=== PATIENT | female | born 1965 | race Two or more races ===

== ENCOUNTER 2019-05-01 13:04 | Emergency (ER) | payer BC, OTHER ==
[~2019-05-01] VITALS: Ht 152.4 cm; Wt 62.6 kg
--- NOTE | 2019-05-01 14:15 | NUR ---
patient came in to the ER c/o congestion x 2 weeks, on room air, breathing evenly and unlabored. connected to the monitor and pulse ox. kept comfortable, will continue to monitor accordingly.
[2019-05-01 14:25] VITALS: BP 128/8
--- NOTE | 2019-05-01 14:26 | NUR ---
Patient discharged to home in stable condition. Written and verbal after care instructions given. Patient verbalizes understanding of instruction.
== END 2019-05-01 14:25 | disposition home or self-care (01) ==
LOC: ER 13:05
DX: J32.0 Chronic maxillary sinusitis (principal); Z98.890 Other specified postprocedural states

== ENCOUNTER 2019-10-29 17:17 | Emergency (ER) | payer BC, OTHER ==
[~2019-10-29] VITALS: Ht 152.4 cm; Wt 62.6 kg
--- NOTE | 2019-10-29 17:20 | NUR ---
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 TO ER BED 16, HOOKED TO MONITOR, PROVIDED W LITO ANDRES AT BEDSIDE FOR EVAL
[2019-10-29] MEDS ORDERED: IV NS 0.9% 1,000 ML BAG IV ONE (18:00)
[2019-10-29 18:24] LABS: BASOPHILS % (AUTO) 0.8 % (0.0-2.0); EOSINOPHILS % (AUTO) 2.6 % (0.0-6.0); HEMATOCRIT 36 % (33-45); HEMOGLOBIN 11.5 g/dL (11.5-14.8); LYMPHOCYTES # (AUTO) 1.3 /CMM (0.8-4.8); LYMPHOCYTES % (AUTO) 32.3 % (20.0-44.0); MEAN CORPUSCULAR HGB CONC 32 g/dl (31.0-36.0); MEAN CORPUSCULAR VOLUME 87 fL (82-100); MONOCYTES # (AUTO) 0.3 /CMM (0.1-1.30); MONOCYTES % (AUTO) 6.6 % (2.0-12.0); NEUTROPHILS # (AUTO) 2.4 /CMM (1.8-8.9); NEUTROPHILS % (AUTO) 57.7 % (43.0-81.0); PLATELET COUNT (AUTO) 311 /CMM (150-450); RED BLOOD CELL COUNT(AUTO) 4.12 MIL/uL (4.0-5.2); WHITE BLOOD COUNT (AUTO) 4.1 K/uL (4.3-11.0)
[2019-10-29 18:29] LABS: CALCIUM, SERUM 9.1 mg/dL (8.5-10.1); CREATININE 0.9 mg/dL (0.6-1.3); POTASSIUM 3.4 mmol/L (3.5-5.1)
--- NOTE | 2019-10-29 19:04 | NUR ---
IV removed. Catheter intact and site benign. Pressure and 4x4 applied to site. No bleeding noted.Patient discharged to home in stable condition. Written and verbal after care instructions given. Patient verbalizes understanding of instruction.
[2019-10-29 19:05] VITALS: BP 124/76
== END 2019-10-29 19:06 | disposition home or self-care (01) ==
LOC: ER 17:19
DX: R55 Syncope and collapse (principal); R42 Dizziness and giddiness; I48.91 Unspecified atrial fibrillation; Z98.890 Other specified postprocedural states
CPT/HCPCS: 36415; 80048; 82962; 84484; 85025; 93005; 96360; 99284; J7030

== ENCOUNTER 2019-12-01 14:50 | Outpatient (CLI) | payer BC, OTHER ==
[2019-12-01] MEDS ORDERED: IV NS 0.9% 250 ML IV ONE (15:20)
[2019-12-01] MEDS ORDERED: IOHEXOL-350 100 ML VIAL IV ONE (15:20)
[2019-12-01] MEDS ORDERED: CT SWABBABLE VALVE TRANS SET 1 EA INFUS.SET MC ONE (15:20)
== END 2019-12-01 23:59 | disposition home or self-care (01) ==
LOC: CT 14:50
PROVIDERS: ATTEND Legal Medicine
DX: J84.10 Pulmonary fibrosis, unspecified (principal); M47.819 Spondylosis without myelopathy or radiculopathy, site unspecified
CPT/HCPCS: 71275; J7050; Q9967

== ENCOUNTER 2019-12-05 13:12 | Outpatient (CLI) | payer BC, OTHER | END 2019-12-05 23:59 | disposition home or self-care (01) | LOC: CARD 13:12 | PROVIDERS: ATTEND Legal Medicine | DX: R06.02 Shortness of breath (principal); R07.9 Chest pain, unspecified | CPT/HCPCS: 93307-TC ==

== ENCOUNTER 2019-12-12 08:05 | Outpatient (CLI) | payer BC, OTHER ==
[2019-12-12 09:05] LABS: BASOPHILS % (AUTO) 0.8 % (0.0-2.0); EOSINOPHILS % (AUTO) 3.3 % (0.0-6.0); HEMATOCRIT 37 % (33-45); HEMOGLOBIN 12.2 g/dL (11.5-14.8); LYMPHOCYTES # (AUTO) 1.4 /CMM (0.8-4.8); MEAN CORPUSCULAR HGB CONC 33 g/dl (31.0-36.0); MEAN CORPUSCULAR VOLUME 85 fL (82-100); MONOCYTES # (AUTO) 0.2 /CMM (0.1-1.30); MONOCYTES % (AUTO) 5.8 % (2.0-12.0); NEUTROPHILS # (AUTO) 1.6 /CMM (1.8-8.9); NEUTROPHILS % (AUTO) 47.1 % (43.0-81.0); PLATELET COUNT (AUTO) 338 /CMM (150-450); RED BLOOD CELL COUNT(AUTO) 4.38 MIL/uL (4.0-5.2); WHITE BLOOD COUNT (AUTO) 3.3 K/uL (4.3-11.0)
[2019-12-12 09:34] LABS: ALBUMIN 3.4 g/dL (3.4-5.0); BILIRUBIN,TOTAL 0.3 mg/dL (0.2-1.0); CALCIUM, SERUM 9.5 mg/dL (8.5-10.1); CREATININE 0.8 mg/dL (0.6-1.3); TOTAL PROTEIN, SERUM 7.5 g/dL (6.4-8.2)
[2019-12-12 10:25] LABS: T4 (THYROXINE) 8.2 ug/dL (4.7-13.3); THYROID STIMULATING HORMONE 2.745 uIU/mL (0.358-3.74)
== END 2019-12-12 23:59 | disposition home or self-care (01) ==
LOC: LAB 08:05
PROVIDERS: ATTEND Internal Medicine Interventional Cardiology
DX: I10 Essential (primary) hypertension (principal); E11.9 Type 2 diabetes mellitus without complications; E78.5 Hyperlipidemia, unspecified; E03.9 Hypothyroidism, unspecified; R53.83 Other fatigue
CPT/HCPCS: 36415; 80053-TC; 84436-TC; 84439-TC; 84443-TC; 85025-TC

== ENCOUNTER 2019-12-14 16:51 | Emergency (ER) | payer BC, OTHER ==
[~2019-12-14] VITALS: Ht 152.4 cm; Wt 63.0 kg
--- NOTE | 2019-12-14 16:56 | NUR ---
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 DR ANDRADE AT BEDSIDE FOR EVAL.
[2019-12-14] MEDS ORDERED: IV NS 0.9% 1,000 ML BAG IV ONE (17:00)
[2019-12-14 17:16] LABS: BASOPHILS # (AUTO) 0.1 /CMM (0.0-0.2); EOSINOPHILS % (AUTO) 2.3 % (0.0-6.0); HEMATOCRIT 37 % (33-45); HEMOGLOBIN 12.1 g/dL (11.5-14.8); LYMPHOCYTES # (AUTO) 2.6 /CMM (0.8-4.8); LYMPHOCYTES % (AUTO) 44.7 % (20.0-44.0); MEAN CORPUSCULAR HGB CONC 33 g/dl (31.0-36.0); MEAN CORPUSCULAR VOLUME 86 fL (82-100); MONOCYTES # (AUTO) 0.3 /CMM (0.1-1.30); MONOCYTES % (AUTO) 5.5 % (2.0-12.0); NEUTROPHILS # (AUTO) 2.7 /CMM (1.8-8.9); NEUTROPHILS % (AUTO) 46.5 % (43.0-81.0); PLATELET COUNT (AUTO) 331 /CMM (150-450); RED BLOOD CELL COUNT(AUTO) 4.27 MIL/uL (4.0-5.2); WHITE BLOOD COUNT (AUTO) 5.7 K/uL (4.3-11.0)
[2019-12-14 17:24] LABS: CALCIUM, SERUM 9.3 mg/dL (8.5-10.1); CARBON DIOXIDE 23 mmol/L (21-32); CHLORIDE 103 mmol/L (98-107); CREATININE 0.9 mg/dL (0.6-1.3); GLUCOSE 95 mg/dL (74-106); POTASSIUM 3.2 mmol/L (3.5-5.1); SODIUM SERUM 136 mmol/L (136-145); UREA NITROGEN, BLOOD 11 mg/dL (7-18)
[2019-12-14 17:30] LABS: ALANINE AMINOTRANSFERASE 22 U/L (12-78); ALBUMIN 3.9 g/dL (3.4-5.0); ALKALINE PHOSPHATASE 100 U/L (46-116); ASPARTATE AMINOTRANSFERASE 25 U/L (15-37); BILIRUBIN,DIRECT 0.1 mg/dL (0.0-0.2); BILIRUBIN,TOTAL 0.2 mg/dL (0.2-1.0); TOTAL PROTEIN, SERUM 8.1 g/dL (6.4-8.2)
[2019-12-14] MEDS ORDERED: POTASSIUM CHLORIDE 20 MEQ TAB.PRT.SR PO ONE ×2 (18:00→18:02)
--- NOTE | 2019-12-14 18:04 | NUR ---
patient feels palpitations, received md order of ekg stat
[2019-12-14 18:20] VITALS: BP 116/74
== END 2019-12-14 18:20 | disposition home or self-care (01) ==
LOC: ER 16:53
DX: R00.2 Palpitations (principal); E87.6 Hypokalemia; Z98.890 Other specified postprocedural states; Z60.2 Problems related to living alone
CPT/HCPCS: 36415; 71045; 80048; 80076; 84484; 85025; 93005 ×4; 96360; 99285; J7030

== ENCOUNTER 2020-04-03 11:45 | Emergency (ER) | payer BC, OTHER ==
[~2020-04-03] VITALS: Ht 152.4 cm; Wt 60.8 kg
[2020-04-03 12:00] VITALS: BP 129/85
== END 2020-04-03 14:09 | disposition home or self-care (01) ==
LOC: ER 11:47
DX: J02.9 Acute pharyngitis, unspecified (principal); R09.81 Nasal congestion; U07.1 COVID-19
CPT/HCPCS: 86403-TC; 87070-TC

== ENCOUNTER 2020-04-10 08:56 | Outpatient (CLI) | payer BC, OTHER ==
[2020-04-10 10:30] LABS: BILIRUBIN,URINE NEGATIVE (NEGATIVE); BLOOD, URINE NEGATIVE Ery/uL (NEGATIVE); COLOR,URINE YELLOW (YELLOW); LEUKOCYTE ESTERASE ,URINE NEGATIVE (NEGATIVE); NITRITE, URINE NEGATIVE (NEGATIVE); PROTEIN,URINE NEGATIVE (NEGATIVE); UGLUCOSE NEGATIVE (NEGATIVE); UROBILINOGEN,URINE 0.2 EU/dL (0.2)
[2020-04-10 10:37] LABS: BASOPHILS % (AUTO) 0.1 % (0.0-2.0); EOSINOPHILS % (AUTO) 0.2 % (0.0-6.0); HEMATOCRIT 41 % (33-45); HEMOGLOBIN 13.2 g/dL (11.5-14.8); LYMPHOCYTES # (AUTO) 1.2 /CMM (0.8-4.8); LYMPHOCYTES % (AUTO) 21.8 % (20.0-44.0); MEAN CORPUSCULAR HGB CONC 32 g/dl (31.0-36.0); MEAN CORPUSCULAR VOLUME 86 fL (82-100); MONOCYTES # (AUTO) 0.3 /CMM (0.1-1.30); NEUTROPHILS # (AUTO) 3.9 /CMM (1.8-8.9); NEUTROPHILS % (AUTO) 72.9 % (43.0-81.0); PLATELET COUNT (AUTO) 349 /CMM (150-450); RED BLOOD CELL COUNT(AUTO) 4.79 MIL/uL (4.0-5.2); WHITE BLOOD COUNT (AUTO) 5.3 K/uL (4.3-11.0)
[2020-04-10 10:41] LABS: ALBUMIN 3.9 g/dL (3.4-5.0); BILIRUBIN,TOTAL 0.3 mg/dL (0.2-1.0); CALCIUM, SERUM 10.1 mg/dL (8.5-10.1); CREATININE 0.8 mg/dL (0.6-1.3); POTASSIUM 3.6 mmol/L (3.5-5.1); TOTAL PROTEIN, SERUM 8.5 g/dL (6.4-8.2)
[2020-04-10 10:54] LABS: THYROID STIMULATING HORMONE 0.582 uIU/mL (0.358-3.74)
[2020-04-10 11:06] LABS: C-REACTIVE PROTEIN 0.3 mg/dL (0.0-0.9)
[2020-04-11 07:07] LABS: FOLLICLE STIMULATION HORMONE 50.4 mIU/mL (.); LUTEINIZING HORMONE 23.2 mIU/mL (.)
== END 2020-04-10 23:59 | disposition home or self-care (01) ==
LOC: LAB 08:56
PROVIDERS: ATTEND Legal Medicine
DX: N39.0 Urinary tract infection, site not specified (principal); D64.9 Anemia, unspecified; R53.1 Weakness
CPT/HCPCS: 36415; 80053-TC; 82670; 83001; 83002; 84439-TC; 84443-TC; 85025-TC; 85652-TC; 86140-TC; 87086-TC

== ENCOUNTER 2020-04-11 11:57 | Emergency (ER) | payer BC, OTHER ==
[~2020-04-11] VITALS: Ht 152.4 cm; Wt 59.9 kg
--- NOTE | 2020-04-11 12:30 | NUR ---
BIB SELF C/O L SIDED PRESSURE LIKE CHEST PAIN, BLE AND L ARM NUMBNESS SINCE 0800 TODAY. VS CHECKED. HOOKED ON MONITOR. IV ACCESS STARTED. BLOO DRAW DONE SENT TO LAB. SEEN BY
[2020-04-11 14:07] LABS: BASOPHILS % (AUTO) 0.9 % (0.0-2.0); HEMATOCRIT 36 % (33-45); HEMOGLOBIN 11.6 g/dL (11.5-14.8); LYMPHOCYTES # (AUTO) 1.4 /CMM (0.8-4.8); LYMPHOCYTES % (AUTO) 33.2 % (20.0-44.0); MEAN CORPUSCULAR HGB CONC 32 g/dl (31.0-36.0); MEAN CORPUSCULAR VOLUME 86 fL (82-100); MONOCYTES # (AUTO) 0.4 /CMM (0.1-1.30); MONOCYTES % (AUTO) 8.7 % (2.0-12.0); NEUTROPHILS # (AUTO) 2.3 /CMM (1.8-8.9); NEUTROPHILS % (AUTO) 56.2 % (43.0-81.0); PLATELET COUNT (AUTO) 292 /CMM (150-450); RED BLOOD CELL COUNT(AUTO) 4.21 MIL/uL (4.0-5.2); WHITE BLOOD COUNT (AUTO) 4.2 K/uL (4.3-11.0)
[2020-04-11 14:11] LABS: CALCIUM, SERUM 9.4 mg/dL (8.5-10.1); CARBON DIOXIDE 27 mmol/L (21-32); CHLORIDE 106 mmol/L (98-107); CREATININE 0.8 mg/dL (0.6-1.3); GLUCOSE 103 mg/dL (74-106); POTASSIUM 3.9 mmol/L (3.5-5.1); SODIUM SERUM 141 mmol/L (136-145); UREA NITROGEN, BLOOD 23 mg/dL (7-18)
--- NOTE | 2020-04-11 18:49 | NUR ---
Patient discharged to home in stable condition. Written and verbal after care instructions given. Patient verbalizes understanding of instruction.IV removed. Catheter intact and site benign. Pressure and 4x4 applied to site. No bleeding noted.
[2020-04-11 18:50] VITALS: BP 130/84
== END 2020-04-11 18:50 | disposition home or self-care (01) ==
LOC: ER 12:03
DX: R07.89 Other chest pain (principal); R20.2 Paresthesia of skin; Z98.890 Other specified postprocedural states; Z60.2 Problems related to living alone
CPT/HCPCS: 36415; 71045; 78582; 80048; 83735; 84484; 85025; 85378; 93005 ×3; 99285; A9540; A9567

== ENCOUNTER 2020-06-29 10:07 | Outpatient (CLI) | payer BC, OTHER | END 2020-06-29 23:59 | disposition home or self-care (01) | LOC: US 10:07 | PROVIDERS: ATTEND Legal Medicine | DX: R10.9 Unspecified abdominal pain (principal); R10.2 Pelvic and perineal pain | CPT/HCPCS: 76856-TC ==

== ENCOUNTER 2020-11-05 08:23 | Outpatient (CLI) | payer BC, OTHER ==
[2020-11-05 09:05] LABS: BASOPHILS % (AUTO) 0.7 % (0.0-2.0); EOSINOPHILS % (AUTO) 2.4 % (0.0-6.0); HEMATOCRIT 38 % (33-45); HEMOGLOBIN 12.3 g/dL (11.5-14.8); MEAN CORPUSCULAR HGB CONC 32 g/dl (31.0-36.0); MEAN CORPUSCULAR VOLUME 86 fL (82-100); MONOCYTES # (AUTO) 0.2 K/uL (0.1-1.30); MONOCYTES % (AUTO) 5.3 % (2.0-12.0); NEUTROPHILS # (AUTO) 1.9 K/uL (1.8-8.9); NEUTROPHILS % (AUTO) 44.6 % (43.0-81.0); PLATELET COUNT (AUTO) 332 K/uL (150-450); RED BLOOD CELL COUNT(AUTO) 4.43 MIL/uL (4.0-5.2); WHITE BLOOD COUNT (AUTO) 4.2 K/uL (4.3-11.0)
[2020-11-05 09:16] LABS: BILIRUBIN,URINE NEGATIVE (NEGATIVE); COLOR,URINE YELLOW (YELLOW); LEUKOCYTE ESTERASE ,URINE NEGATIVE (NEGATIVE); NITRITE, URINE NEGATIVE (NEGATIVE); PH,URINE 7.5 (5.0-8.0); PROTEIN,URINE NEGATIVE (NEGATIVE); UGLUCOSE NEGATIVE (NEGATIVE); UROBILINOGEN,URINE 0.2 EU/dL (0.2)
[2020-11-05 09:24] LABS: IRON, SERUM 53 ug/dl (50-175); TOTAL IRON BINDING CAPACITY 289 ug/dl (250-450)
[2020-11-05 09:43] LABS: CHOLESTEROL 240 mg/dL (<200); FERRITIN 37 ng/mL (8-388); HDL CHOLESTEROL 56 mg/dL (40-60); LDL 179 mg/dL (0-99); THYROID STIMULATING HORMONE 1.797 uIU/mL (0.358-3.74); TRIGLYCERIDES 101 mg/dL (30-150)
[2020-11-05 09:50] LABS: ALANINE AMINOTRANSFERASE 32 U/L (12-78); ALBUMIN 3.5 g/dL (3.4-5.0); ALKALINE PHOSPHATASE 105 U/L (46-116); ASPARTATE AMINOTRANSFERASE 27 U/L (15-37); BILIRUBIN,TOTAL 0.2 mg/dL (0.2-1.0); CALCIUM, SERUM 8.9 mg/dL (8.5-10.1); CARBON DIOXIDE 28 mmol/L (21-32); CHLORIDE 109 mmol/L (98-107); CREATININE 0.8 mg/dL (0.6-1.3); GLUCOSE 98 mg/dL (74-106); POTASSIUM 4.1 mmol/L (3.5-5.1); SODIUM SERUM 141 mmol/L (136-145); TOTAL PROTEIN, SERUM 7.5 g/dL (6.4-8.2); UREA NITROGEN, BLOOD 13 mg/dL (7-18)
[2020-11-05 10:02] LABS: C-REACTIVE PROTEIN < 0.2 mg/dL (0.0-0.9)
[2020-11-06 05:08] LABS: FOLLICLE STIMULATION HORMONE 55.9 mIU/mL (.); LUTEINIZING HORMONE 33.4 mIU/mL (.); PROLACTIN 12.1 ng/mL (4.8-23.3)
== END 2020-11-05 23:59 | disposition home or self-care (01) ==
LOC: LAB 08:23
PROVIDERS: ATTEND Legal Medicine
DX: N39.0 Urinary tract infection, site not specified (principal); E03.9 Hypothyroidism, unspecified; D64.9 Anemia, unspecified; E55.9 Vitamin D deficiency, unspecified; R53.1 Weakness; R30.0 Dysuria; Z00.00 Encounter for general adult medical examination without abnormal findings
CPT/HCPCS: 36415; 80053-TC; 80061-TC; 82306; 82607-TC; 82626; 82670; 82728-TC; 83001; 83002; 83540-TC; 84146; 84403; 84439-TC; 84443-TC; 85025-TC; 85652-TC; 86140-TC; 87086-TC

== ENCOUNTER 2021-02-01 11:05 | Outpatient (CLI) | payer BC, OTHER | END 2021-02-01 23:59 | disposition home or self-care (01) | LOC: CT 11:05 | PROVIDERS: ATTEND Legal Medicine | DX: J32.2 Chronic ethmoidal sinusitis (principal); J03.90 Acute tonsillitis, unspecified; R59.1 Generalized enlarged lymph nodes | CPT/HCPCS: 70490-TC ==

== ENCOUNTER → 2021-03-20 | Outpatient (CLI) | payer BC, OTHER ==
[2021-03-20 10:57] LABS: BASOPHILS % (AUTO) 0.9 % (0.0-2.0); EOSINOPHILS % (AUTO) 4.6 % (0.0-6.0); HEMATOCRIT 36 % (33-45); HEMOGLOBIN 11.8 g/dL (11.5-14.8); LYMPHOCYTES # (AUTO) 1.3 K/uL (0.8-4.8); LYMPHOCYTES % (AUTO) 42.1 % (20.0-44.0); MEAN CORPUSCULAR HGB CONC 32 g/dl (31.0-36.0); MEAN CORPUSCULAR VOLUME 87 fL (82-100); MONOCYTES # (AUTO) 0.2 K/uL (0.1-1.30); NEUTROPHILS # (AUTO) 1.3 K/uL (1.8-8.9); NEUTROPHILS % (AUTO) 44.4 % (43.0-81.0); PLATELET COUNT (AUTO) 287 K/uL (150-450)
[2021-03-20 11:47] LABS: C-REACTIVE PROTEIN 0.3 mg/dL (0.0-0.9); URIC ACID 4.5 mg/dL (2.6-7.2)
== END | disposition home or self-care (01) ==
LOC: LAB 09:17
PROVIDERS: ATTEND Legal Medicine
DX: R07.89 Other chest pain (principal)
CPT/HCPCS: 36415; 82550-TC; 84550-TC; 85025-TC; 85652-TC; 86140-TC; 86200; 86431-TC

== ENCOUNTER 2021-05-28 09:55 | Outpatient (CLI) | payer BC, OTHER | END 2021-05-28 23:59 | disposition home or self-care (01) | LOC: US 09:55 | PROVIDERS: ATTEND Legal Medicine | DX: R10.2 Pelvic and perineal pain (principal) | CPT/HCPCS: 76856-TC ==

== ENCOUNTER 2021-06-05 12:57 | Outpatient (CLI) | payer BC, OTHER | END 2021-06-05 23:59 | disposition home or self-care (01) | LOC: MRI 12:57 | PROVIDERS: ATTEND Legal Medicine | DX: M47.817 Spondylosis without myelopathy or radiculopathy, lumbosacral region (principal); M48.061 Spinal stenosis, lumbar region without neurogenic claudication | CPT/HCPCS: 72148-TC ==

== ENCOUNTER 2021-11-06 11:16 | Outpatient (CLI) | payer BC, OTHER ==
[2021-11-06 12:36] LABS: BASOPHILS % (AUTO) 0.8 % (0.0-2.0); EOSINOPHILS % (AUTO) 2.5 % (0.0-6.0); HEMATOCRIT 40 % (33-45); HEMOGLOBIN 12.8 g/dL (11.5-14.8); LYMPHOCYTES # (AUTO) 1.3 K/uL (0.8-4.8); MEAN CORPUSCULAR HGB CONC 32 g/dl (31.0-36.0); MEAN CORPUSCULAR VOLUME 84 fL (82-100); MONOCYTES # (AUTO) 0.2 K/uL (0.1-1.30); MONOCYTES % (AUTO) 6.4 % (2.0-12.0); NEUTROPHILS # (AUTO) 1.4 K/uL (1.8-8.9); NEUTROPHILS % (AUTO) 46.3 % (43.0-81.0); PLATELET COUNT (AUTO) 281 K/uL (150-450); RED BLOOD CELL COUNT(AUTO) 4.69 MIL/uL (4.0-5.2); WHITE BLOOD COUNT (AUTO) 3.1 K/uL (4.3-11.0)
[2021-11-06 12:57] LABS: BILIRUBIN,URINE NEGATIVE (NEGATIVE); COLOR,URINE YELLOW (YELLOW); LEUKOCYTE ESTERASE ,URINE NEGATIVE (NEGATIVE); NITRITE, URINE NEGATIVE (NEGATIVE); PROTEIN,URINE NEGATIVE (NEGATIVE); UGLUCOSE NEGATIVE (NEGATIVE); UROBILINOGEN,URINE 0.2 EU/dL (0.2)
[2021-11-06 13:21] LABS: CHOLESTEROL 255 mg/dL (<200); FERRITIN 29 ng/mL (8-388); HDL CHOLESTEROL 56 mg/dL (40-60); LDL 173 mg/dL (0-99); THYROID STIMULATING HORMONE 1.906 uIU/mL (0.358-3.74); TRIGLYCERIDES 112 mg/dL (30-150)
[2021-11-06 13:25] LABS: C-REACTIVE PROTEIN < 0.2 mg/dL (0.0-0.9)
[2021-11-06 13:46] LABS: ALANINE AMINOTRANSFERASE 35 U/L (12-78); ALBUMIN 3.6 g/dL (3.4-5.0); ALKALINE PHOSPHATASE 103 U/L (46-116); AMYLASE 97 U/L (25-115); ASPARTATE AMINOTRANSFERASE 30 U/L (15-37); BILIRUBIN,TOTAL 0.2 mg/dL (0.2-1.0); CALCIUM, SERUM 9.1 mg/dL (8.5-10.1); CARBON DIOXIDE 27 mmol/L (21-32); CHLORIDE 106 mmol/L (98-107); CREATININE 0.7 mg/dL (0.6-1.3); GLUCOSE 94 mg/dL (74-106); LIPASE 135 U/L (73-393); POTASSIUM 4.1 mmol/L (3.5-5.1); SODIUM SERUM 140 mmol/L (136-145); TOTAL PROTEIN, SERUM 7.6 g/dL (6.4-8.2); UREA NITROGEN, BLOOD 11 mg/dL (7-18)
[2021-11-06 15:02] LABS: IRON, SERUM 59 ug/dl (50-175); TOTAL IRON BINDING CAPACITY 245 ug/dl (250-450)
== END 2021-11-06 23:59 | disposition home or self-care (01) ==
LOC: LAB 11:16
PROVIDERS: ATTEND Legal Medicine
DX: Z00.00 Encounter for general adult medical examination without abnormal findings (principal); I70.0 Atherosclerosis of aorta; N32.89 Other specified disorders of bladder; D73.89 Other diseases of spleen; E11.9 Type 2 diabetes mellitus without complications; E78.00 Pure hypercholesterolemia, unspecified; R53.1 Weakness; E03.9 Hypothyroidism, unspecified; D64.9 Anemia, unspecified; E55.9 Vitamin D deficiency, unspecified; R10.9 Unspecified abdominal pain
CPT/HCPCS: 36415; 80053-TC; 80061-TC; 82150-TC; 82306; 82607-TC; 82728-TC; 83540-TC; 83690-TC; 84439-TC; 84443-TC; 85025-TC; 85652-TC; 86140-TC; 87086-TC

== ENCOUNTER 2022-06-25 10:24 | Outpatient (CLI) | payer BC, OTHER | END 2022-06-25 23:59 | disposition home or self-care (01) | LOC: CT 10:24 | PROVIDERS: ATTEND Legal Medicine | DX: M47.812 Spondylosis without myelopathy or radiculopathy, cervical region (principal); R51.9 Headache, unspecified | CPT/HCPCS: 70450-TC; 72125-TC ==

== ENCOUNTER 2022-11-20 19:40 | Emergency (ER) | payer BC, OTHER ==
[~2022-11-20] VITALS: Ht 152.4 cm; Wt 62.6 kg
[2022-11-20 19:52] VITALS: TEMP 98.4
[2022-11-20 20:37] LABS: BILIRUBIN,URINE NEGATIVE (NEGATIVE); COLOR,URINE YELLOW (YELLOW); LEUKOCYTE ESTERASE ,URINE 3+ (NEGATIVE); NITRITE, URINE NEGATIVE (NEGATIVE); PROTEIN,URINE NEGATIVE (NEGATIVE); UGLUCOSE NEGATIVE (NEGATIVE); UROBILINOGEN,URINE 0.2 EU/dL (0.2)
[2022-11-20 20:46] LABS: BACTERIA,URINE 2+ /HPF (None Seen); SQUAMOUS EPITHELIAL CELL,UR 0-2 /HPF (None Seen); WBC,URINE 51-80 /HPF (0-3)
[2022-11-20] MEDS ORDERED: CEFD300C3 PO (21:08)
[2022-11-20 21:15] VITALS: BP 118/76; O2SAT 98
== END 2022-11-20 21:15 | disposition home or self-care (01) ==
LOC: ER 19:49
DX: N12 Tubulo-interstitial nephritis, not specified as acute or chronic (principal); N39.0 Urinary tract infection, site not specified; Z98.890 Other specified postprocedural states; Z60.2 Problems related to living alone; Z79.899 Other long term (current) drug therapy
CPT/HCPCS: 81001; 87086-TC

== ENCOUNTER 2023-07-14 15:30 | Emergency (ER) | payer BC, OTHER ==
[~2023-07-14] VITALS: Ht 152.4 cm; Wt 62.1 kg
[~2023-07-14 15:30] MED LIST: CEFD300C3 PO
[2023-07-14 15:38] VITALS: BP 130/75; TEMP 98.4; O2SAT 99
== END 2023-07-14 16:21 | disposition home or self-care (01) ==
LOC: ER 15:34
DX: S09.90XA Unspecified injury of head, initial encounter (principal); Z60.2 Problems related to living alone; W20.8XXA Other cause of strike by thrown, projected or falling object, initial encounter; Y93.89 Activity, other specified; Y92.89 Other specified places as the place of occurrence of the external cause; Y99.0 Civilian activity done for income or pay

== ENCOUNTER 2024-03-16 17:42 | Emergency (ER) | payer BC ==
[~2024-03-16] VITALS: Ht 152.4 cm; Wt 59.9 kg
[2024-03-16 17:52] VITALS: TEMP 97.8
[2024-03-16 18:25] LABS: BASOPHILS # (AUTO) 0.1 K/uL (0.0-0.2); BASOPHILS % (AUTO) 1.1 % (0.0-2.0); EOSINOPHILS # (AUTO) 0.1 K/uL (0.0-0.7); EOSINOPHILS % (AUTO) 1.5 % (0.0-6.0); HEMATOCRIT 36 % (33-45); HEMOGLOBIN 11.7 g/dL (11.5-14.8); MEAN CORPUSCULAR HEMOGLOBIN 28 PG (26.0-33.0); MEAN CORPUSCULAR HGB CONC 33 g/dl (31.0-36.0); MEAN CORPUSCULAR VOLUME 85 fL (82-100); MONOCYTES # (AUTO) 0.3 K/uL (0.1-1.30); MONOCYTES % (AUTO) 5.4 % (2.0-12.0); NEUTROPHILS # (AUTO) 2.7 K/uL (1.8-8.9); PLATELET COUNT (AUTO) 330 K/uL (150-450); RED CELL DISTRIBUTION WIDTH 14.2 % (11.5-15.0); WHITE BLOOD COUNT (AUTO) 5.1 K/uL (4.3-11.0)
[2024-03-16 18:33] LABS: CALCIUM, SERUM 9.7 mg/dL (8.5-10.1); CARBON DIOXIDE 26 mmol/L (21-32); CHLORIDE 104 mmol/L (98-107); CREATININE 0.8 mg/dL (0.6-1.3); GLUCOSE 109 mg/dL (74-106); POTASSIUM 3.3 mmol/L (3.5-5.1); SODIUM SERUM 140 mmol/L (136-145); UREA NITROGEN, BLOOD 10 mg/dL (7-18)
[2024-03-16 23:20] VITALS: BP 119/73; O2SAT 98
== END 2024-03-16 22:00 | disposition home or self-care (01) ==
LOC: ER 17:46
DX: R07.89 Other chest pain (principal); I10 Essential (primary) hypertension; Z79.899 Other long term (current) drug therapy; Z60.2 Problems related to living alone
CPT/HCPCS: 36415; 71045-TC; 80048-TC; 84484-TC; 85025-TC; 85378-TC

== ENCOUNTER 2024-04-29 09:36 | Outpatient (CLI) | payer BC, OTHER ==
[2024-04-29 10:44] LABS: BASOPHILS % (AUTO) 1.2 % (0.0-2.0); EOSINOPHILS # (AUTO) 0.2 K/uL (0.0-0.7); EOSINOPHILS % (AUTO) 3.9 % (0.0-6.0); HEMATOCRIT 36 % (33-45); HEMOGLOBIN 11.9 g/dL (11.5-14.8); LYMPHOCYTES # (AUTO) 1.6 K/uL (0.8-4.8); LYMPHOCYTES % (AUTO) 42.5 % (20.0-44.0); MEAN CORPUSCULAR HEMOGLOBIN 28 PG (26.0-33.0); MEAN CORPUSCULAR HGB CONC 33 g/dl (31.0-36.0); MEAN CORPUSCULAR VOLUME 85 fL (82-100); MONOCYTES # (AUTO) 0.2 K/uL (0.1-1.30); MONOCYTES % (AUTO) 6.1 % (2.0-12.0); NEUTROPHILS # (AUTO) 1.8 K/uL (1.8-8.9); NEUTROPHILS % (AUTO) 46.3 % (43.0-81.0); PLATELET COUNT (AUTO) 356 K/uL (150-450); RED BLOOD CELL COUNT(AUTO) 4.26 MIL/uL (4.0-5.2); RED CELL DISTRIBUTION WIDTH 14.1 % (11.5-15.0); WHITE BLOOD COUNT (AUTO) 3.9 K/uL (4.3-11.0)
[2024-04-29 10:58] LABS: APPEARANCE,URINE CLEAR (CLEAR); BILIRUBIN,URINE NEGATIVE (NEGATIVE); BLOOD, URINE NEGATIVE Ery/uL (NEGATIVE); COLOR,URINE YELLOW (YELLOW); KETONES,URINE NEGATIVE (NEGATIVE); LEUKOCYTE ESTERASE ,URINE NEGATIVE (NEGATIVE); NITRITE, URINE NEGATIVE (NEGATIVE); PROTEIN,URINE NEGATIVE (NEGATIVE); UGLUCOSE NEGATIVE (NEGATIVE); UROBILINOGEN,URINE 0.2 EU/dL (0.2)
[2024-04-29 11:03] LABS: THYROID STIMULATING HORMONE 1.52 uIU/mL (0.358-3.74)
[2024-04-29 11:17] LABS: ALBUMIN 3.5 g/dL (3.4-5.0); BILIRUBIN,TOTAL 0.2 mg/dL (0.2-1.0); CALCIUM, SERUM 9.3 mg/dL (8.5-10.1); CREATININE 0.7 mg/dL (0.6-1.3); TOTAL PROTEIN, SERUM 7.4 g/dL (6.4-8.2)
[2024-04-30 11:06] LABS: FOLIC ACID > 20.0 ng/mL (>3.0)
[2024-04-30 12:07] LABS: CORTISOL AM 9.2 ug/dL (6.2-19.4)
== END 2024-04-29 23:59 | disposition home or self-care (01) ==
LOC: LAB 09:36
PROVIDERS: ATTEND Legal Medicine
DX: Z00.00 Encounter for general adult medical examination without abnormal findings (principal); E55.9 Vitamin D deficiency, unspecified; E78.00 Pure hypercholesterolemia, unspecified; R53.1 Weakness; E11.22 Type 2 diabetes mellitus with diabetic chronic kidney disease; N18.9 Chronic kidney disease, unspecified; D63.1 Anemia in chronic kidney disease
CPT/HCPCS: 36415; 80053-TC; 82533; 82607-TC; 82728-TC; 83540-TC; 84443-TC; 85025-TC; 87086-TC

== ENCOUNTER 2024-09-02 18:17 | Emergency (ER) | payer BC, OTHER ==
[~2024-09-02] VITALS: Ht 152.4 cm; Wt 58.1 kg
[2024-09-02 18:36] LABS: BASOPHILS % (AUTO) 0.7 % (0.0-2.0); EOSINOPHILS # (AUTO) 0.1 K/uL (0.0-0.7); EOSINOPHILS % (AUTO) 1.7 % (0.0-6.0); HEMATOCRIT 38 % (33-45); HEMOGLOBIN 12.5 g/dL (11.5-14.8); LYMPHOCYTES # (AUTO) 2.9 K/uL (0.8-4.8); LYMPHOCYTES % (AUTO) 50.6 % (20.0-44.0); MEAN CORPUSCULAR HEMOGLOBIN 28 PG (26.0-33.0); MEAN CORPUSCULAR HGB CONC 33 g/dl (31.0-36.0); MEAN CORPUSCULAR VOLUME 84 fL (82-100); MONOCYTES # (AUTO) 0.2 K/uL (0.1-1.30); MONOCYTES % (AUTO) 3.8 % (2.0-12.0); NEUTROPHILS # (AUTO) 2.5 K/uL (1.8-8.9); NEUTROPHILS % (AUTO) 43.2 % (43.0-81.0); PLATELET COUNT (AUTO) 310 K/uL (150-450); RED BLOOD CELL COUNT(AUTO) 4.46 MIL/uL (4.0-5.2); RED CELL DISTRIBUTION WIDTH 13.9 % (11.5-15.0); WHITE BLOOD COUNT (AUTO) 5.7 K/uL (4.3-11.0)
[2024-09-02 18:46] LABS: CALCIUM, SERUM 9.6 mg/dL (8.5-10.1); CHLORIDE 104 mmol/L (98-107); GLUCOSE 117 mg/dL (74-106); POTASSIUM 3.2 mmol/L (3.5-5.1); SODIUM SERUM 135 mmol/L (136-145); UREA NITROGEN, BLOOD 18 mg/dL (7-18)
[2024-09-02 18:58] LABS: NT-PRO BNP 41 pg/mL (0-125)
[2024-09-02 19:10] LABS: CARBON DIOXIDE 24 mmol/L (21-32)
[2024-09-02 19:11] LABS: THYROID STIMULATING HORMONE 1.54 uIU/mL (0.358-3.74)
[2024-09-02] MEDS ORDERED: POTASSIUM CHLORIDE 20 MEQ TAB.PRT.SR PO ONE (19:40)
[2024-09-02] MEDS: POTASSIUM CHLORIDE 20 MEQ TAB.PRT.SR PO ONE (19:43)
[2024-09-02 20:54] VITALS: BP 120/72; TEMP 97.7; O2SAT 97
== END 2024-09-02 20:55 | disposition home or self-care (01) ==
LOC: ER 18:28
DX: R00.2 Palpitations (principal); E87.6 Hypokalemia; I10 Essential (primary) hypertension; R06.00 Dyspnea, unspecified; R07.9 Chest pain, unspecified; R42 Dizziness and giddiness; Z60.2 Problems related to living alone
CPT/HCPCS: 36415; 71045-TC; 80048-TC; 83735-TC; 83880; 84439-TC; 84443-TC; 84484-TC; 85025-TC

== ENCOUNTER 2024-09-15 11:48 | Inpatient (IN) | payer BC, OTHER ==
[~2024-09-15] VITALS: Ht 160 cm; Wt 59.0 kg
[2024-09-15 12:48] LABS: BASOPHILS % (AUTO) 0.7 % (0.0-2.0); EOSINOPHILS # (AUTO) 0.1 K/uL (0.0-0.7); EOSINOPHILS % (AUTO) 1.6 % (0.0-6.0); HEMATOCRIT 37 % (33-45); HEMOGLOBIN 12.3 g/dL (11.5-14.8); LYMPHOCYTES # (AUTO) 1.5 K/uL (0.8-4.8); LYMPHOCYTES % (AUTO) 39.4 % (20.0-44.0); MEAN CORPUSCULAR HEMOGLOBIN 28 PG (26.0-33.0); MEAN CORPUSCULAR HGB CONC 33 g/dl (31.0-36.0); MEAN CORPUSCULAR VOLUME 85 fL (82-100); MONOCYTES # (AUTO) 0.2 K/uL (0.1-1.30); NEUTROPHILS % (AUTO) 52.3 % (43.0-81.0); PLATELET COUNT (AUTO) 317 K/uL (150-450); RED BLOOD CELL COUNT(AUTO) 4.38 MIL/uL (4.0-5.2); RED CELL DISTRIBUTION WIDTH 13.8 % (11.5-15.0); WHITE BLOOD COUNT (AUTO) 3.8 K/uL (4.3-11.0)
[2024-09-15 12:58] LABS: MAGNESIUM 2.2 mg/dL (1.8-2.4)
[2024-09-15 12:59] LABS: CALCIUM, SERUM 9.7 mg/dL (8.5-10.1); CARBON DIOXIDE 26 mmol/L (21-32); CHLORIDE 107 mmol/L (98-107); GLUCOSE 132 mg/dL (74-106); POTASSIUM 3.9 mmol/L (3.5-5.1); SODIUM SERUM 140 mmol/L (136-145); UREA NITROGEN, BLOOD 22 mg/dL (7-18)
[2024-09-15 13:11] LABS: NT-PRO BNP 29 pg/mL (0-125)
[2024-09-15] MEDS ORDERED: POTASSIUM SUPPLEMENT PO (13:28)
[2024-09-15] MEDS ORDERED: ASPI-1169 PO (13:28)
[2024-09-15] MEDS ORDERED: FERR-68 PO (13:28)
[2024-09-15 13:36] LABS: THYROID STIMULATING HORMONE 2.59 uIU/mL (0.358-3.74)
[2024-09-15] MEDS ORDERED: HYDROCODONE/APAP 5/325MG TABLET PO PRN (14:30)
[2024-09-15] MEDS ORDERED: MAGNESIUM HYDROXIDE 30 ML UDC PO PRN (14:30)
[2024-09-15] MEDS ORDERED: ZOLPIDEM TARTRATE 5 MG TABLET PO PRN (14:30)
[2024-09-15] MEDS ORDERED: LORAZEPAM 1 MG TABLET PO PRN (14:30)
[2024-09-15] MEDS ORDERED: MAG HYDROX/AL HYDROX/SIMETH 30 ML UDC PO PRN (14:30)
[2024-09-15] MEDS ORDERED: Z GUARD REMEDY 4 OZ OINT TP PRN (14:30)
[2024-09-15] MEDS ORDERED: ACETAMINOPHEN 325 MG TABLET PO PRN (14:30)
[2024-09-15] MEDS: ASPIRIN 81 MG TAB.CHEW PO SCH (14:59)
[2024-09-15] MEDS: ENOXAPARIN SODIUM 40 MG/0.4 ML DISP.SYRIN SQ SCH (15:00)
[2024-09-15 16:00] VITALS: BP 124/66; TEMP 98.2; O2SAT 100
[2024-09-15] MEDS: IV NS 0.9% 1,000 ML IV PRN (18:28)
[2024-09-15 20:00] VITALS: BP 113/71; TEMP 97.7; O2SAT 100
[2024-09-16] VITALS: BP 107/66; TEMP 98.1; O2SAT 100
[2024-09-16 04:00] VITALS: BP 97/63; TEMP 97.3; O2SAT 100
[2024-09-16 06:34] LABS: EOSINOPHILS # (AUTO) 0.1 K/uL (0.0-0.7); EOSINOPHILS % (AUTO) 2.2 % (0.0-6.0); HEMATOCRIT 34 % (33-45); HEMOGLOBIN 11.4 g/dL (11.5-14.8); LYMPHOCYTES # (AUTO) 1.9 K/uL (0.8-4.8); LYMPHOCYTES % (AUTO) 45.3 % (20.0-44.0); MEAN CORPUSCULAR HEMOGLOBIN 29 PG (26.0-33.0); MEAN CORPUSCULAR HGB CONC 34 g/dl (31.0-36.0); MEAN CORPUSCULAR VOLUME 84 fL (82-100); MONOCYTES # (AUTO) 0.3 K/uL (0.1-1.30); MONOCYTES % (AUTO) 7.1 % (2.0-12.0); NEUTROPHILS # (AUTO) 1.8 K/uL (1.8-8.9); NEUTROPHILS % (AUTO) 44.4 % (43.0-81.0); PLATELET COUNT (AUTO) 301 K/uL (150-450); RED BLOOD CELL COUNT(AUTO) 3.99 MIL/uL (4.0-5.2); RED CELL DISTRIBUTION WIDTH 13.9 % (11.5-15.0); WHITE BLOOD COUNT (AUTO) 4.1 K/uL (4.3-11.0)
[2024-09-16 07:11] LABS: CALCIUM, SERUM 9.2 mg/dL (8.5-10.1); CREATININE 0.8 mg/dL (0.6-1.3); MAGNESIUM 2.3 mg/dL (1.8-2.4); PHOSPHORUS 3.3 mg/dL (2.5-4.9)
[2024-09-16] MEDS: PANTOPRAZOLE 40 MG TABLET.DR PO SCH (07:30)
[2024-09-16 08:00] VITALS: BP 109/72; TEMP 98.1; O2SAT 100
[2024-09-16] MEDS: ATORVASTATIN 40 MG TABLET PO SCH (08:19)
[2024-09-16] MEDS: METOPROLOL TARTRATE 50 MG TABLET PO SCH (08:19)
[2024-09-16] MEDS ORDERED: diphenhydrAMINE HCL 50 MG/ML VIAL IV ONE (09:00)
[2024-09-16] MEDS ORDERED: FAMOTIDINE/PF INJ 20 MG/2 ML VIAL IV ONE (09:00)
[2024-09-16] MEDS ORDERED: methylPREDNISolone SOD SUCC 125 MG/2ML VIAL IV ONE (09:00)
[2024-09-16] MEDS: METOPROLOL TARTRATE 50 MG TABLET PO ONE (11:58)
[2024-09-16 12:00] VITALS: BP 109/71; TEMP 98.4; O2SAT 99
[2024-09-16] MEDS ORDERED: IV NS 0.9% 0 ML IV ONE (13:58)
[2024-09-16] MEDS ORDERED: IOHEXOL-350 100 ML VIAL IV ONE (13:58)
[2024-09-16] MEDS: methylPREDNISolone SOD SUCC 125 MG/2ML VIAL IV PRN (14:07)
[2024-09-16] MEDS: diphenhydrAMINE HCL 50 MG/ML VIAL IV PRN (14:08)
[2024-09-16] MEDS: FAMOTIDINE/PF INJ 20 MG/2 ML VIAL IV PRN (14:08)
[2024-09-16] MEDS ORDERED: METOPROLOL TARTRATE INJ 5 MG/5 ML AMPUL IVP PRN (14:10)
[2024-09-16] MEDS ORDERED: NITROGLYCERIN 0.4 MG/TAB BOTTLE SL ONE (14:10)
[2024-09-16 16:00] VITALS: BP 115/69; TEMP 98.1; O2SAT 99
[2024-09-16 20:00] VITALS: BP 99/64; TEMP 98.6; O2SAT 100
[2024-09-17] VITALS: BP 94/63; TEMP 98.2; O2SAT 99
[2024-09-17 04:00] VITALS: BP 94/59; TEMP 98.2; O2SAT 99
[2024-09-17] MEDS: ONDANSETRON HCL/PF 4 MG/2 ML VIAL IVP PRN (04:56)
[2024-09-17 08:00] VITALS: BP 115/68; TEMP 98.1; O2SAT 100
[2024-09-17 08:43] VITALS: BP 115/68
[2024-09-17] MEDS ORDERED: LORA-259 PO (09:30)
== END 2024-09-17 16:45 | disposition home or self-care (01) | DRG 641 ==
LOC: ER 11:50 → TELE1 14:20 → MEDSG1 09-17 09:30
PROVIDERS: ADMIT Nurse Practitioner Acute Care; ATTEND Nurse Practitioner Acute Care
DX: E86.0 Dehydration (principal); F41.9 Anxiety disorder, unspecified; I10 Essential (primary) hypertension; R07.9 Chest pain, unspecified; R73.9 Hyperglycemia, unspecified; R00.2 Palpitations; D64.9 Anemia, unspecified
CPT/HCPCS: 36415; 71045-TC; 80048-TC; 80061-TC; 83735-TC; 83880; 84100-TC; 84439-TC; 84443-TC; 84484-TC; 85025-TC; 93307-TC; 97110-TC; 97116-TC; 97530-TC; 97535-TC; A4223; G0378; J1200; J1308; J1650; J2405; J2919; J7030; J7050; Q9967

== ENCOUNTER 2024-09-29 13:35 | Outpatient (CLI) | payer BC, OTHER ==
[~2024-09-29 13:35] MED LIST changes: +ASPI-1169 PO; -CEFD300C3 PO; +FERR-68 PO; +LORA-259 PO; +POTASSIUM SUPPLEMENT PO
[2024-09-29 14:44] LABS: FREE T4 (FREE THYROXINE) 1.02 ng/dL (0.76-1.46); THYROID STIMULATING HORMONE 1.13 uIU/mL (0.358-3.74)
[2024-09-30 08:07] LABS: *TESTOSTERONE, SERUM 22 ng/dL (3-67); CORTISOL SERUM 9.4 ug/dL (6.2-19.4); ESTRADIOL (*R) <5.0 pg/mL (0.0-54.7); FOLLICLE STIMULATION HORMONE 44.2 mIU/mL (25.8-134.8); LUTEINIZING HORMONE 24.6 mIU/mL (7.7-58.5); T3, FREE 2.8 pg/mL (2.0-4.4); THYROID PEROXIDASE (TPO) AB <9 IU/mL (0-34)
== END 2024-09-29 23:59 | disposition home or self-care (01) ==
LOC: LAB 13:35
PROVIDERS: ATTEND Legal Medicine
DX: R53.1 Weakness (principal); D64.9 Anemia, unspecified; E03.9 Hypothyroidism, unspecified
CPT/HCPCS: 36415; 82533; 82626; 82670; 83001; 83002; 84403; 84439-TC; 84443-TC; 84478-TC; 84481; 86376

== ENCOUNTER 2024-10-17 12:56 | Emergency (ER) | payer BC, OTHER ==
[~2024-10-17] VITALS: Ht 152.4 cm; Wt 57.2 kg
[2024-10-17 13:49] LABS: BASOPHILS % (AUTO) 0.7 % (0.0-2.0); EOSINOPHILS % (AUTO) 1.1 % (0.0-6.0); HEMATOCRIT 36 % (33-45); HEMOGLOBIN 11.8 g/dL (11.5-14.8); LYMPHOCYTES % (AUTO) 30.5 % (20.0-44.0); MEAN CORPUSCULAR HEMOGLOBIN 28 PG (26.0-33.0); MEAN CORPUSCULAR HGB CONC 33 g/dl (31.0-36.0); MEAN CORPUSCULAR VOLUME 85 fL (82-100); MONOCYTES # (AUTO) 0.2 K/uL (0.1-1.30); MONOCYTES % (AUTO) 7.1 % (2.0-12.0); NEUTROPHILS % (AUTO) 60.6 % (43.0-81.0); PLATELET COUNT (AUTO) 301 K/uL (150-450); RED BLOOD CELL COUNT(AUTO) 4.28 MIL/uL (4.0-5.2); RED CELL DISTRIBUTION WIDTH 13.7 % (11.5-15.0); WHITE BLOOD COUNT (AUTO) 3.4 K/uL (4.3-11.0)
[2024-10-17 14:02] LABS: CALCIUM, SERUM 9.5 mg/dL (8.5-10.1); CARBON DIOXIDE 23 mmol/L (21-32); CHLORIDE 108 mmol/L (98-107); CREATININE 0.8 mg/dL (0.6-1.3); GLUCOSE 113 mg/dL (74-106); POTASSIUM 3.8 mmol/L (3.5-5.1); SODIUM SERUM 142 mmol/L (136-145); UREA NITROGEN, BLOOD 15 mg/dL (7-18)
[2024-10-17 14:12] LABS: NT-PRO BNP 44 pg/mL (0-125)
[2024-10-17] MEDS ORDERED: POTASSIUM CHLORIDE 20 MEQ TAB.PRT.SR PO ONE (16:38)
[2024-10-17] MEDS: POTASSIUM CHLORIDE 20 MEQ TAB.PRT.SR PO ONE (16:41)
[2024-10-17 16:50] VITALS: BP 103/65; TEMP 98.3; O2SAT 97
== END 2024-10-17 16:51 | disposition home or self-care (01) ==
LOC: ER 13:11
DX: R00.2 Palpitations (principal); R55 Syncope and collapse; R06.02 Shortness of breath; F41.9 Anxiety disorder, unspecified; I10 Essential (primary) hypertension; Z88.8 Allergy status to other drugs, medicaments and biological substances; Z60.2 Problems related to living alone
CPT/HCPCS: 99285; 71045; 93005; 85025; 80048; 36415; 84443; 84484 ×2; 83880; J7120

== ENCOUNTER 2024-11-03 20:51 | Emergency (ER) | payer BC, OTHER ==
[~2024-11-03] VITALS: Ht 154.9 cm; Wt 67.1 kg
[2024-11-03 21:13] LABS: PLATELET COUNT (AUTO) 324 K/uL (150-450); RED BLOOD CELL COUNT(AUTO) 4.56 MIL/uL (4.0-5.2); RED CELL DISTRIBUTION WIDTH 13.9 % (11.5-15.0); WHITE BLOOD COUNT (AUTO) 5.1 K/uL (4.3-11.0)
[2024-11-03 21:35] LABS: APPEARANCE,URINE CLEAR (CLEAR); BLOOD, URINE NEGATIVE Ery/uL (NEGATIVE); LEUKOCYTE ESTERASE ,URINE 1+ (NEGATIVE); NITRITE, URINE NEGATIVE (NEGATIVE); UGLUCOSE NEGATIVE (NEGATIVE)
[2024-11-03] MEDS ORDERED: SULF1TAB48 PO (21:47)
[2024-11-03 21:51] LABS: ADD URINE CULTURE YES; SQUAMOUS EPITHELIAL CELL,UR 0-2 /HPF (None Seen)
[2024-11-03 21:56] VITALS: BP 126/70; TEMP 98.5; O2SAT 98
[2024-11-03 21:59] LABS: CALCIUM, SERUM 9.8 mg/dL (8.5-10.1); CREATININE 0.9 mg/dL (0.6-1.3); SODIUM SERUM 139.0 mmol/L (136-145); UREA NITROGEN, BLOOD 13.0 mg/dL (7-18)
== END 2024-11-03 21:56 | disposition home or self-care (01) ==
LOC: ER 20:53
DX: N12 Tubulo-interstitial nephritis, not specified as acute or chronic (principal); F41.9 Anxiety disorder, unspecified; I10 Essential (primary) hypertension; Z88.8 Allergy status to other drugs, medicaments and biological substances; Z60.2 Problems related to living alone
CPT/HCPCS: 36415; 80048-TC; 81001; 85025-TC; 87086-TC

== ENCOUNTER 2024-11-08 09:39 | Emergency (ER) | payer BC, OTHER ==
[~2024-11-08] VITALS: Ht 152.4 cm; Wt 56.2 kg
[~2024-11-08 09:39] MED LIST changes: +SULF1TAB48 PO
[2024-11-08] MEDS ORDERED: KETOROLAC TROMETHAMINE 15 MG/ML VIAL ONE (11:18)
[2024-11-08] MEDS ORDERED: ONDANSETRON HCL/PF 4 MG/2 ML VIAL ONE (11:18)
[2024-11-08 11:19] LABS: PLATELET COUNT (AUTO) 326 K/uL (150-450); RED BLOOD CELL COUNT(AUTO) 4.51 MIL/uL (4.0-5.2); RED CELL DISTRIBUTION WIDTH 13.4 % (11.5-15.0); WHITE BLOOD COUNT (AUTO) 3.3 K/uL (4.3-11.0)
[2024-11-08] MEDS ORDERED: MORPHINE SULFATE INJ 4 MG/ML DISP.SYRIN ONE (11:19)
[2024-11-08] MEDS ORDERED: CEFTRIAXONE 1 G VIAL ONE (11:19)
[2024-11-08 11:25] LABS: APPEARANCE,URINE CLEAR (CLEAR); BLOOD, URINE 1+ Ery/uL (NEGATIVE); LEUKOCYTE ESTERASE ,URINE 3+ (NEGATIVE); NITRITE, URINE NEGATIVE (NEGATIVE); UGLUCOSE NEGATIVE (NEGATIVE)
[2024-11-08 11:25] LABS: CALCIUM, SERUM 9.9 mg/dL (8.5-10.1); CREATININE 0.9 mg/dL (0.6-1.3); SODIUM SERUM 138.0 mmol/L (136-145); UREA NITROGEN, BLOOD 13.0 mg/dL (7-18)
[2024-11-08] MEDS: CEFTRIAXONE 1GM BAG (ER ONLY) 50 ML IV ONE (11:27)
[2024-11-08] MEDS: MORPHINE SULFATE INJ 2 MG/ML DISP.SYRIN IV ONE (11:27)
[2024-11-08] MEDS: IV NS 0.9% 1,000 ML BAG IV ONE (11:27)
[2024-11-08] MEDS: KETOROLAC TROMETHAMINE 15 MG/ML VIAL IV ONE (11:29)
[2024-11-08] MEDS: ONDANSETRON HCL/PF 4 MG/2 ML VIAL IVP ONE (11:29)
[2024-11-08 11:31] LABS: ASPARTATE AMINOTRANSFERASE 24.0 U/L (15-37); TOTAL PROTEIN, SERUM 7.6 g/dL (6.4-8.2)
[2024-11-08 11:33] LABS: ADD URINE CULTURE YES; SQUAMOUS EPITHELIAL CELL,UR 0-2 /HPF (None Seen)
[2024-11-08 11:36] LABS: LACTIC ACID 1.3 mmol/L (0.4-2.0)
[2024-11-08] MEDS ORDERED: CEFD300C3 PO (11:59)
[2024-11-08] MEDS ORDERED: NAPR-1164 PO (11:59)
[2024-11-08 12:58] VITALS: BP 104/57; TEMP 97.7; O2SAT 98
== END 2024-11-08 12:59 | disposition home or self-care (01) ==
LOC: ER 09:48
DX: N39.0 Urinary tract infection, site not specified (principal); F41.9 Anxiety disorder, unspecified; I10 Essential (primary) hypertension; Z88.8 Allergy status to other drugs, medicaments and biological substances; Z87.448 Personal history of other diseases of urinary system; Z60.2 Problems related to living alone
CPT/HCPCS: 99285; 74176; 96365; 96375; 85025; 80048; 87040 ×2; 87086; 83605; 83690; 80076; 81001; 36415; J1885; J0696; J2405; J7030; J2270

== ENCOUNTER 2024-11-17 17:37 | Emergency (ER) | payer BC, OTHER ==
[~2024-11-17] VITALS: Ht 152.4 cm; Wt 56.2 kg
[~2024-11-17 17:37] MED LIST changes: +CEFD300C3 PO; +NAPR-1164 PO
[2024-11-17 17:52] VITALS: BP 121/73; TEMP 98.1; O2SAT 99
[2024-11-17 18:30] LABS: APPEARANCE,URINE CLEAR (CLEAR); BLOOD, URINE NEGATIVE Ery/uL (NEGATIVE); LEUKOCYTE ESTERASE ,URINE NEGATIVE (NEGATIVE); NITRITE, URINE NEGATIVE (NEGATIVE); UGLUCOSE NEGATIVE (NEGATIVE)
== END 2024-11-17 18:52 | disposition home or self-care (01) ==
LOC: ER 17:41
DX: R30.0 Dysuria (principal); F41.9 Anxiety disorder, unspecified; I10 Essential (primary) hypertension; Z88.8 Allergy status to other drugs, medicaments and biological substances; Z87.448 Personal history of other diseases of urinary system; Z87.42 Personal history of other diseases of the female genital tract; Z60.2 Problems related to living alone

== ENCOUNTER 2025-03-05 11:43 | Emergency (ER) | payer BC, OTHER ==
[~2025-03-05] VITALS: Ht 152.4 cm; Wt 55.3 kg
[2025-03-05 11:57] VITALS: TEMP 98.2
[2025-03-05] MEDS ORDERED: MORPHINE SULFATE INJ 4 MG/ML DISP.SYRIN ONE (12:02)
[2025-03-05] MEDS ORDERED: ONDANSETRON HCL/PF 4 MG/2 ML VIAL ONE (12:02)
[2025-03-05 12:37] LABS: PLATELET COUNT (AUTO) 305 K/uL (150-450); RED BLOOD CELL COUNT(AUTO) 4.43 MIL/uL (4.0-5.2); RED CELL DISTRIBUTION WIDTH 14.2 % (11.5-15.0); WHITE BLOOD COUNT (AUTO) 3.0 K/uL (4.3-11.0)
[2025-03-05] MEDS: ONDANSETRON HCL/PF 4 MG/2 ML VIAL IVP ONE (12:38)
[2025-03-05] MEDS: IV NS 0.9% 500 ML BAG IV ONE (12:38)
[2025-03-05] MEDS: MORPHINE SULFATE INJ 2 MG/ML DISP.SYRIN IV ONE (12:38)
[2025-03-05 12:47] LABS: APPEARANCE,URINE CLEAR (CLEAR); BLOOD, URINE TRACE-INTA Ery/uL (NEGATIVE); LEUKOCYTE ESTERASE ,URINE NEGATIVE (NEGATIVE); NITRITE, URINE NEGATIVE (NEGATIVE); UGLUCOSE NEGATIVE (NEGATIVE)
[2025-03-05 12:47] LABS: ASPARTATE AMINOTRANSFERASE 34.0 U/L (15-37); CALCIUM, SERUM 9.4 mg/dL (8.5-10.1); CREATININE 0.8 mg/dL (0.6-1.3); SODIUM SERUM 142.0 mmol/L (136-145); TOTAL PROTEIN, SERUM 7.4 g/dL (6.4-8.2); UREA NITROGEN, BLOOD 15.0 mg/dL (7-18)
[2025-03-05 13:01] LABS: ADD URINE CULTURE NO; SQUAMOUS EPITHELIAL CELL,UR 0-2 /HPF (None Seen)
[2025-03-05] MEDS ORDERED: DOCU-141 PO (13:24)
[2025-03-05] MEDS ORDERED: GLYC-30 RC (13:24)
[2025-03-05 13:58] VITALS: BP 146/72; O2SAT 99
== END 2025-03-05 13:45 | disposition home or self-care (01) ==
LOC: ER 11:43
DX: R10.32 Left lower quadrant pain (principal); I10 Essential (primary) hypertension; F41.9 Anxiety disorder, unspecified; Z88.8 Allergy status to other drugs, medicaments and biological substances; Z91.018 Allergy to other foods
CPT/HCPCS: 99284; 74176; 85025; 80048; 83690; 80076; 81001; 36415; J2270; J2405; J7040; 87086-TC